=== PATIENT | female | born 1985 | race Caucasian/White ===

== ENCOUNTER → 2016-05-16 | Day surgery (SDC) | payer OTHER ==
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
[~2016-05-16] VITALS: Ht 162.6 cm; Wt 60.6 kg
[~2016-05-16] MED LIST: *PROMETHAZINE 25 MG/ML VIAL PERIprocedural use ONLY ONE; *morphine SULFATE 8 MG/ML PERIprocedure ONLY ONE; ACETAMINOPHEN 1000 MG/100 ML VIAL IV ONE; ACETAMINOPHEN/HYDROcodone 325 MG/5 MG TAB ONE; CLINDAMYCIN 600 MG/NS 100 ML IV SCH; CLINDAMYCIN PHOS 600 MG/4 ML VIAL ONE; DO NOT ADM ANY ANTICOAGULANT DRUGS XX PRN; FAMOTIDINE 20 MG/2 ML VIAL ONE; FLUORESCEIN SOD 10% SOLN 500 MG/5 ML AMP ONE; HYDROmorphone HCL PF 2 MG/ML VIAL ONE; INSULIN HUMAN REGULAR 1,000 UNITS/10 ML VIAL SQ PRN; LACTATED RINGER'S 1000 ML INJ 1,000 ML ONE; LACTATED RINGER'S 1000 ML INJ 2,000 ML IV ONE; LACTATED RINGER'S 1000 ML IV SCH; LIDOCAINE 1%/EPINEPHrine 1:100,000 SOLN 20 ML VIAL ONE; METOPROLOL TARTRATE 25 MG TAB PO PRN; METRONIDAZOLE 500 MG/100 ML ISONTONIC SOLN IV SCH; MIDAZOLAM HCL 2 MG/2 ML VIAL ONE; MORPHINE SULFATE 4 MG/ML INJ IM PRN; MORPHINE SULFATE 4 MG/ML INJ ONE; NEOSTIGMINE METHYLSULFATE 10 MG/10 ML VIAL IV PUSH ONE; ONDANSETRON HCL 4 MG/2 ML VIAL IV PRN; ONDANSETRON HCL 4 MG/2 ML VIAL IV PUSH ONE; ONDANSETRON HCL 4 MG/2 ML VIAL ONE; PROMETHAZINE INJ 25 MG/ML VIAL ONE; PROPOFOL 200 MG/20 ML AMP IV ONE; SODIUM CHLORID 0.9% 500 ML IV SCH; SODIUM CHLORIDE 0.9% INJ 100 ML ONE; TYLETAB34 PO; XANA1TAB2 PO; fentaNYL CITRATE 250 MCG/5 ML AMP ONE; metroNIDAZOLE 500 MG INJ 100 ML IV ONE
[2016-05-16 07:04] VITALS: BP 120/75; PULSE 67; RESP 16; TEMP 97.7; O2SAT 100
--- NOTE | 2016-05-16 12:31 | PD.OP ---
Operative Report Date of Surgery: May 16, 2016 Preoperative Diagnosis: (1) Dysmenorrhea Postoperative Diagnosis: (1) Dysmenorrhea (2) Intestinal adhesions Procedure: LASH RT SALPINGECTOMY LYSIS OF BOWEL ADHESIONS CYSTOSCOPY Anesthesia: GETA/OGT Surgeon: Jean-Paul Castle [employer] Commander(s): [facility] [place] X2 Operation and Findings: EXTENSIVE ADHESIONS OF BOWEL AND UTERUS TO ABDOMINAL WALL NORMAL OVARIES NORMAL CYSTOSCOPY POST OP Jean-Paul Castle MD May 16, 2016 12:31
[2016-05-16 13:38] VITALS: BP 99/61; PULSE 65; RESP 18; TEMP 97.9; O2SAT 99
--- NOTE | 2016-05-22 10:22 | MP ---
cc: GUERO COHN DATE OF SURGERY 05/16/2016 PREOPERATIVE DIAGNOSES Dysmenorrhea POSTOPERATIVE DIAGNOSIS Dysmenorrhea with extensive abdominal pelvic adhesions involving omentum and bowel to the uterus as well as uterus to the anterior abdominal wall PROCEDURE 1. Laparoscopic supracervical hysterectomy modifier 22 secondary to the complexity of dissection, lysis of adhesions and distortion of anatomy. 2. Right salpingectomy. 3. Diagnostic cystoscopy. SURGEON Breanna Cohn MD ANESTHESIA General endotracheal with OG tube [employer] staff x1 FLUIDS 2000 CC crystalloid BLOOD LOSS 100 mL URINE OUTPUT 200 mL crystalloid FINDINGS Genitalia normal pop Q score is Aa is -3. Ap is -3. Point c is -8, total vaginal length is 10. General hiatus is 5. Perineal body is five. Uterus is adhesed to the abdominal wall consistent with prior . She also has omentum adhered to the uterus and the abdominal wall. Adnexa on the left is adhesed with sigmoid. Upper abdomen appears to be normal. Cystoscopy following hysterectomy shows normal trigone, good coaptation of urethra and ureteral orifices patent x2. Dome base bladder normal. SPECIMEN 1. Morcellated uterus approximately 100 grams 2. right tube COMPLICATIONS None DISPOSITION Recovery room stable. COUNTS needle, sponge correct. DRAINS Olsen catheter PROPHYLAXIS Antibiotics prophylaxis Cleocin and Flagyl, DVT prophylaxis sequential compression device. Time-out procedure per protocol. INDICATIONS FOR PROCEDURE Patient with long history of dysmenorrhea, unresponsive to medicinal therapy including operative therapy with hysteroscopy and endometrial ablation. The patient taken operating room and prepped and draped in fashion appropriate for procedure. She was in dorsal lithotomy position with careful attention paid to placement of legs in stirrups to avoid undue stress to sensitive vascular structures. Above findings noted. Neurovascular integrity documented. In light of the patient's prior history of lower abdominal surgery, left upper quadrant approach was used. A Veress needle was placed, gas insufflated confirmed intra-abdominal entry. Pressure was a raised to 15 mmHg and a 5 mm scope was placed under direct visualization. A Trendelenburg position instituted we noted adhesions in the midline from the umbilicus down to the pubis. The uterus was adhered especially on the right side to the abdominal wall. Bowel was adhesed on the left to the left adnexa. 5 mm trocars were placed in the left lower quadrant and umbilicus as well as the right lower quadrant. We then had dissection with Harmonic energy to relieve the adhesions making sure the bowel was clear. We then took the uterus that was adhesed to the abdominal wall, freed this up and made sure that the bladder was not involved. Developed bladder flap without complication. At this point, suprapubic trocar was placed, 10-12 mm without Complication. We identified the utero-ovarian ligament on the left. This was taken down with harmonic energy, came down to the uterine vessels with good anatomic hemostatic result. On the right side, we mobilized the ovary then came down to the utero-ovarian around the broad ligament. We took the uterine vessels and came across the uterine cervix at a pressure at a level of 1 cm above the uterosacral ligaments. There was a small bleeder noted on the pedicle of the utero-ovarian ligament on the lateral side. This was taken down with bipolar energy making sure the ureter was clear. The ureters were identified at each side making sure they were clear by dissection. The endocervical canal was fulgurated with bipolar energy. The right tube was removed with Harmonic energy standard fashion. The left tube cannot be well identified and it was not clear if this was because of adhesions or had been removed with a prior tubal ligation. The morcellator was placed through the 10-12 port. Morcellation was performed without complications. There was no spill of any product or spray of tissue. Pelvis was irrigated. All areas were hemostatic with and without gas pressure. We did use hemostatic powder over areas of dissection for added reassurance. The 10-12 port was closed with suture closure device and 0 Vicryl suture. We then closed the skin with 4-0 Monocryl and Dermabond. The bladder was back-filled with 300 mL of normal saline. The 5 mm laparoscope was placed through the urethra to inspect. The above findings were noted. Procedure was concluded. Olsen catheter replaced. The patient reversed from anesthesia, taken to recovery room in stable condition. MD ROXANNE Roblero/ /10:23 AM /10:18 AM MARCIA
== END | disposition home or self-care (01) ==
LOC: HSDC 06:04
PROVIDERS: ATTEND Obstetrics & Gynecology Gynecology
DX: N93.9 Abnormal uterine and vaginal bleeding, unspecified (principal); N94.6 Dysmenorrhea, unspecified; N73.6 Female pelvic peritoneal adhesions (postinfective); N83.8 Other noninflammatory disorders of ovary, fallopian tube and broad ligament; Z88.0 Allergy status to penicillin; Z88.1 Allergy status to other antibiotic agents
CPT/HCPCS: 00840; 58542; 88307; J0131; J1170; J2250; J2270; J2405; J2550; J2710; J3010; J7120